=== PATIENT | female | born 1985 | race Caucasian/White ===

== ENCOUNTER 2020-07-24 15:41 | Observation (INO) | payer OTHER ==
[~2020-07-24] VITALS: Ht 162.6 cm; Wt 126.6 kg
[~2020-07-24 15:41] MED LIST: MACROBID 100 M100 M1 PO
[2020-07-24 15:48] VITALS: BP 178/119
[2020-07-24] MEDS ORDERED: PHENERGAN 25 MG25 M1 PO (15:51)
[2020-07-24] MEDS ORDERED: KLONOPIN1 MG PO (15:51)
[2020-07-24 16:13] LABS: ABSOLUTE BASOPHILS 0.1 thou/uL (0.0-0.2); ABSOLUTE EOSINOPHILS 0.1 thou/uL (0.0-0.7); ABSOLUTE LYMPHOCYTES 2.3 thou/uL (0.8-5.3); ABSOLUTE MONOCYTES 0.9 thou/uL (0.0-1.2); ABSOLUTE NEUTROPHILS 5.5 thou/uL (1.6-8.1); BASOPHILS 0.9 %; EOSINOPHILS 0.8 %; HEMATOCRIT 45.4 % (37.0-47.0); HEMOGLOBIN 15.3 gm/dL (12.0-15.0); MCH 32.9 pg (26.0-34.0); MCHC 33.7 g/dL (28.0-37.0); MCV 97.8 fL (80.0-100.0); MONOCYTES 9.7 %; MPV 7.8 fl. (7.2-11.1); NUCLEATED RBCS 0 /100WBC; PLATELET COUNT* 274 thou/uL (150-400); POLYS 62.6 %; RBC 4.64 mil/uL (4.20-5.00); WBC 8.8 thou/uL (4.0-11.0)
[2020-07-24 16:18] LABS: CREATININE 0.9 mg/dL (0.6-1.3); POTASSIUM 4.1 mmol/L (3.5-5.1)
[2020-07-24 16:28] LABS: ALBUMIN 3.5 g/dL (3.4-5.0); TOTAL BILIRUBIN 0.4 mg/dL (<0.1-1.0); TOTAL PROTEIN 8.1 g/dL (6.4-8.2)
--- NOTE | 2020-07-24 17:37 | EKG ---
[place] [address] ELECTROCARDIOGRAM REPORT Name: HERBIE WELLSLEY Constance [address] [id number] Admission: 07/24/20 Attend Phys: Nikhil Covarrubias, Discharge: Date of : 85 Date of Service: 07/24/20 1549 Report #: [id number] THIS REPORT FOR: //name// [facility] ED Test Date: 2020-07-24 Test Time: 15:49:10 Pat Name: CHARMAINE WELLS Department: Room: [facility] Gender: F Clay Burner: YU : 1985 Requested By: Shaquille Bettencourt Order Number: [id number] MD: Jason Pal Measurements Intervals [place] Rate: 117 P: 0 MD: 85 QRS: 3 QRSD: 78 T: 218 QT: 416 QTc: 581 Interpretive Statements Sinus tachycardia Probable left atrial enlargement Nonspecific T abnormalities, diffuse leads Prolonged QT interval No previous ECG available for comparison Electronically Signed On 07-24-2020 17:37:18 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
[2020-07-24 18:03] VITALS: BP 145/95
[2020-07-24 20:34] VITALS: BP 159/99
[2020-07-25] VITALS (8 sets, daily range): BP systolic 128–171; BP diastolic 73–108
[2020-07-25 06:27] LABS: CALCIUM 8.8 mg/dL (8.5-10.1); CREATININE 0.7 mg/dL (0.6-1.3); MAGNESIUM 2.1 mg/dL (1.8-2.4); POTASSIUM 3.9 mmol/L (3.5-5.1)
[2020-07-25] MEDS ORDERED: MUCINEX600 MG PO (11:56)
[2020-07-25] MEDS ORDERED: METOPROLOL TART25 MG PO (11:56)
--- NOTE | 2020-07-25 15:27 | 2DMMODE ---
[place] [address] 2 D/M-MODE ECHOCARDIOGRAM Name: CHARMAINE WELLS Constance Room: [address] Sanjay Ya#: [id number] Admission: 07/24/20 Attend Phys: Nikhil Covarrubias, Discharge: Date of : 85 Date of Service: 07/25/20 1527 Report #: [id number] THIS REPORT FOR: cc: FAM - No family physician/PCP FAM - No family physician/PCP Jason Pal MD [facility] ~ APPROVED REPORT Study performed: 07/25/2020 14:00:57 EXAM: Comprehensive 2D, Doppler, and color-flow Echocardiogram Patient Location: In-Patient Room #: [facility] Status: routine BSA: 2.26 HR: 77 bpm BP: 144/103 mmHg Rhythm: NSR Other Information Study Quality: Good Indications Dyspnea 2D Dimensions IVSd: 12.55 (7-11mm) LVOT Diam: 20.04 (18-24mm) LVDd: 48.85 mm PWd: 10.79 (7-11mm) Ascending Ao: 33.29 (22-36mm) LVDs: 33.33 (25-40mm) Aortic Root: 33.52 mm Volumes Left Atrial Volume (Systole) LA ESV Index: 23.70 mL/m2 Aortic Valve AoV Peak Jayy.: 1.11 m/s AO Peak Gr.: 4.95 mmHg LVOT Max P.19 mmHg AO Mean Gr.: 2.61 mmHg LVOT Mean P.87 mmHg LVOT Max V: 1.02 m/s AO V2 VTI: 22.32 cm LVOT Mean V: 0.62 m/s RDEW (VTI): 3.09 cm2 LVOT V1 VTI: 21.88 [place] [address] 2 D/M-MODE ECHOCARDIOGRAM Name: CHARMAINE WELLS [address]#: [id number] Admission: 07/24/20 Attend Phys: Nikhil Covarrubias, Discharge: Date of : 85 Date of Service: 07/25/20 1527 Report #: [id number] Mitral Valve E/A Ratio: 1.31 MV Decel. Time: 292.14 ms MV E Max Jayy.: 0.62 m/s MV PHT: 84.72 ms MVA (PHT): 2.60 cm2 TDI E/Lateral E': 5.17 E/Medial E': 6.20 Medial E' Jayy.: 0.10 m/s Lateral E' Jayy.: 0.12 m/s Pulmonary Valve PV Peak Jayy.: 0.80 m/s PV Peak Gr.: 2.54 mmHg Left Ventricle The left ventricle is normal size. There is normal LV segmental wall motion. There is normal left ventricular wall thickness. Left ventricular systolic function is normal. The left ventricular ejection fraction is within the normal range. LVEF is 55-60%. The left ventricular diastolic function is normal. Right Ventricle The right ventricle is normal size. The right ventricular systolic function is normal. Atria The left atrium size is normal. The right atrium size is normal. Aortic Valve The aortic valve is normal in structure. No aortic regurgitation is present. There is no aortic valvular stenosis. Mitral Valve The mitral valve is normal in structure. There is no mitral valve regurgitation noted. No evidence of mitral valve stenosis. Tricuspid Valve The tricuspid valve is normal in structure. There is no tricuspid valve regurgitation noted. Pulmonic Valve The pulmonary valve is normal in structure. There is no pulmonic [place] [address] 2 D/M-MODE ECHOCARDIOGRAM Name: CHARMAINE WELLS [address]#: [id number] Admission: 07/24/20 Attend Phys: Nikhil Covarrubias, Discharge: Date of : 85 Date of Service: 07/25/20 1527 Report #: [id number] Great Vessels The aortic root is normal in size. IVC is normal in size and collapses >50% with inspiration. Pericardium There is no pericardial effusion. <Conclusion> Left ventricular systolic function is normal. The left ventricular ejection fraction is within the normal range. <ELECTRONICALLY SIGNED> By: Jason Pal MD, [facility] 07/25/20 1527 1527 1527 Jason Pal MD, FACC /INF
[2020-07-26 02:06] LABS: GLYCOHEMOGLOBIN (HGB A1C) 5.1 % (4.8-5.6)
== END 2020-07-25 20:45 | disposition home or self-care (01) ==
LOC: M.ERS 15:41 → M.TBA-ER 17:08 → M.ORTHSURG 18:38
PROVIDERS: Emergency Medicine Emergency Medical Services; ADMIT Internal Medicine; ATTEND Internal Medicine
DX: U07.1 COVID-19 (principal); F41.1 Generalized anxiety disorder; G43.909 Migraine, unspecified, not intractable, without status migrainosus; E66.9 Obesity, unspecified; I45.81 Long QT syndrome; E06.3 Autoimmune thyroiditis; R73.9 Hyperglycemia, unspecified; F43.10 Post-traumatic stress disorder, unspecified; Z79.899 Other long term (current) drug therapy; Z68.42 Body mass index [BMI] 45.0-49.9, adult

== ENCOUNTER 2020-12-18 18:48 | Emergency (ER) | payer OTHER ==
[~2020-12-18] VITALS: Ht 165.1 cm; Wt 127.0 kg
[~2020-12-18 18:48] MED LIST changes: +KLONOPIN1 MG PO; +METOPROLOL TART25 MG PO; +MUCINEX600 MG PO; +PHENERGAN 25 MG25 M1 PO
[2020-12-18] MEDS ORDERED: NADOLOL 20 MG T20 M1 PO (19:07)
[2020-12-18 20:14] LABS: ABSOLUTE BASOPHILS 0.1 thou/uL (0.0-0.2); ABSOLUTE EOSINOPHILS 0.2 thou/uL (0.0-0.7); ABSOLUTE LYMPHOCYTES 2.6 thou/uL (0.8-5.3); ABSOLUTE MONOCYTES 0.8 thou/uL (0.0-1.2); ABSOLUTE NEUTROPHILS 5.5 thou/uL (1.6-8.1); BASOPHILS 0.9 %; EOSINOPHILS 2.5 %; HEMOGLOBIN 14.5 gm/dL (12.0-15.0); LYMPHOCYTES 28.5 %; MCH 32.5 pg (26.0-34.0); MCHC 32.9 g/dL (28.0-37.0); MCV 98.9 fL (80.0-100.0); MONOCYTES 8.4 %; MPV 7.5 fl. (7.2-11.1); NUCLEATED RBCS 0 /100WBC; PLATELET COUNT* 275 thou/uL (150-400); POLYS 59.7 %; RBC 4.45 mil/uL (4.20-5.00); RDW-CV 13.5 % (10.5-14.5); WBC 9.2 thou/uL (4.0-11.0)
[2020-12-18 20:23] LABS: CALCIUM 9.4 mg/dL (8.5-10.1); CREATININE 0.8 mg/dL (0.6-1.3)
[2020-12-18 20:27] LABS: ALBUMIN 3.4 g/dL (3.4-5.0); MAGNESIUM 2.1 mg/dL (1.8-2.4); TOTAL BILIRUBIN 0.4 mg/dL (<0.1-1.0); TOTAL PROTEIN 8.4 g/dL (6.4-8.2)
[2020-12-18 21:14] LABS: URINE BILIRUBIN NEGATIVE (Negative); URINE BLOOD NEGATIVE (Negative); URINE CLARITY CLEAR; URINE COLOR YELLOW; URINE GLUCOSE-RANDOM NEGATIVE (Negative); URINE KETONES NEGATIVE (Negative); URINE LEUKOCYTES-REFLEX NEGATIVE (Negative); URINE NITRITE-REFLEX NEGATIVE (Negative); URINE PROTEIN NEGATIVE (Negative); URINE SPECIFIC GRAVITY <= 1.005 (1.005-1.030); URINE UROBILINOGEN 0.2 E.U./dl (0.2-1.0)
[2020-12-18] MEDS ORDERED: BUTALB-APAP-CA1 EACH PO ×2 (22:19→22:44)
[2020-12-18] MEDS ORDERED: MEDROLDOSEPACK PO ×2 (22:19→22:44)
[2020-12-18 22:48] VITALS: BP 148/80
== END 2020-12-18 22:50 | disposition home or self-care (01) ==
LOC: M.ERS 18:48
PROVIDERS: Personal Emergency Response Attendant
DX: R51.9 Headache, unspecified (principal); Z88.1 Allergy status to other antibiotic agents; Z88.6 Allergy status to analgesic agent; Z88.8 Allergy status to other drugs, medicaments and biological substances; Z90.710 Acquired absence of both cervix and uterus; Z90.49 Acquired absence of other specified parts of digestive tract; Z79.899 Other long term (current) drug therapy

== ENCOUNTER 2021-02-05 22:05 | Emergency (ER) | payer OTHER ==
[~2021-02-05] VITALS: Ht 172.7 cm; Wt 127.0 kg
[~2021-02-05 22:05] MED LIST changes: +BUTALB-APAP-CA1 EACH PO; +MEDROLDOSEPACK PO; +NADOLOL 20 MG T20 M1 PO
[2021-02-05] MEDS ORDERED: MECLIZINE HCL25 M1 PO (22:16)
[2021-02-05 23:28] LABS: ABSOLUTE BASOPHILS 0.1 thou/uL (0.0-0.2); ABSOLUTE EOSINOPHILS 0.2 thou/uL (0.0-0.7); ABSOLUTE LYMPHOCYTES 2.6 thou/uL (0.8-5.3); ABSOLUTE MONOCYTES 0.9 thou/uL (0.0-1.2); ABSOLUTE NEUTROPHILS 7.1 thou/uL (1.6-8.1); BASOPHILS 0.6 %; EOSINOPHILS 1.7 %; HEMATOCRIT 37.1 % (37.0-47.0); HEMOGLOBIN 12.7 gm/dL (12.0-15.0); LYMPHOCYTES 24.2 %; MCH 33.5 pg (26.0-34.0); MCHC 34.1 g/dL (28.0-37.0); MCV 98.2 fL (80.0-100.0); MONOCYTES 8.7 %; MPV 7.6 fl. (7.2-11.1); NUCLEATED RBCS 0 /100WBC; PLATELET COUNT* 301 thou/uL (150-400); POLYS 64.8 %; RBC 3.78 mil/uL (4.20-5.00); RDW-CV 14.5 % (10.5-14.5); WBC 10.9 thou/uL (4.0-11.0)
[2021-02-05 23:37] LABS: CALCIUM 8.7 mg/dL (8.5-10.1); CREATININE 0.8 mg/dL (0.6-1.3); POTASSIUM 4.1 mmol/L (3.5-5.1)
[2021-02-05 23:48] LABS: ALBUMIN 3.1 g/dL (3.4-5.0); TOTAL BILIRUBIN 0.3 mg/dL (<0.1-1.0); TOTAL PROTEIN 7.4 g/dL (6.4-8.2)
[2021-02-05 23:57] LABS: URINE BILIRUBIN NEGATIVE (Negative); URINE BLOOD NEGATIVE (Negative); URINE CLARITY CLEAR; URINE COLOR YELLOW; URINE GLUCOSE-RANDOM NEGATIVE (Negative); URINE KETONES NEGATIVE (Negative); URINE LEUKOCYTES-REFLEX NEGATIVE (Negative); URINE NITRITE-REFLEX NEGATIVE (Negative); URINE PROTEIN NEGATIVE (Negative); URINE SPECIFIC GRAVITY <= 1.005 (1.005-1.030); URINE UROBILINOGEN 0.2 E.U./dl (0.2-1.0)
[2021-02-06] MEDS ORDERED: MEDROLDOSEPACK PO (02:25)
[2021-02-06] MEDS ORDERED: ACETAMINOPHEN-1 EAC2 PO (02:25)
[2021-02-06 02:50] VITALS: BP 117/68
--- NOTE | 2021-02-06 10:56 | EKG ---
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 : 1985 Requested By: Hannah Cochran Order Number: [id number] MD: Stanley Xiong Measurements Intervals [place] Rate: 80 P: 42 [place]: 162 QRS: -7 QRSD: 93 T: -9 QT: 385 QTc: 445 Interpretive Statements Sinus rhythm Possible left ventricular hypertrophy Borderline T abnormalities, inferior leads Compared to ECG 07/24/2020 15:49:10 Left ventricular hypertrophy now present Sinus tachycardia no longer present Prolonged QT interval no longer present ST-T abnormalities have diminished Electronically Signed On 02-06-2021 10:56:08 CDT by Stanley Xiong [email or web address] <ELECTRONICALLY SIGNED> By: Stanley Xiong MD, [facility] 02/06/21 1056 10 10 Stanley Xiong MD, [facility] /EPI
== END 2021-02-06 02:50 | disposition home or self-care (01) ==
LOC: M.ERS 22:05
PROVIDERS: Personal Emergency Response Attendant
DX: F41.9 Anxiety disorder, unspecified (principal); R07.89 Other chest pain; Z88.1 Allergy status to other antibiotic agents; Z88.8 Allergy status to other drugs, medicaments and biological substances; Z88.6 Allergy status to analgesic agent; Z90.710 Acquired absence of both cervix and uterus; Z90.49 Acquired absence of other specified parts of digestive tract

== ENCOUNTER 2021-03-08 17:53 | Emergency (ER) | payer OTHER ==
[~2021-03-08] VITALS: Ht 162.6 cm; Wt 133.4 kg
[~2021-03-08 17:53] MED LIST changes: +ACETAMINOPHEN-1 EAC2 PO; +MECLIZINE HCL25 M1 PO
[2021-03-08] MEDS ORDERED: LEXAPRO20 MG PO (18:09)
[2021-03-08 18:13] LABS: ABSOLUTE BASOPHILS 0.1 thou/uL (0.0-0.2); ABSOLUTE EOSINOPHILS 0.1 thou/uL (0.0-0.7); ABSOLUTE LYMPHOCYTES 1.8 thou/uL (0.8-5.3); ABSOLUTE MONOCYTES 0.9 thou/uL (0.0-1.2); ABSOLUTE NEUTROPHILS 9.9 thou/uL (1.6-8.1); BASOPHILS 0.9 %; EOSINOPHILS 0.6 %; HEMATOCRIT 40.6 % (37.0-47.0); LYMPHOCYTES 14.1 %; MCHC 34.6 g/dL (28.0-37.0); MCV 98.2 fL (80.0-100.0); MPV 6.8 fl. (7.2-11.1); NUCLEATED RBCS 0 /100WBC; PLATELET COUNT* 261 thou/uL (150-400); POLYS 77.4 %; RBC 4.13 mil/uL (4.20-5.00); RDW-CV 14.4 % (10.5-14.5); WBC 12.8 thou/uL (4.0-11.0)
[2021-03-08 18:24] LABS: ANION GAP 10 mmol/L (7-16); BUN 6 mg/dL (7-18); CALCIUM 8.6 mg/dL (8.5-10.1); CHLORIDE 98 mmol/L (98-107); CO2 26 mmol/L (21-32); CREATININE 0.7 mg/dL (0.6-1.3); GLUCOSE 94 mg/dL (70-99); POTASSIUM 4.3 mmol/L (3.5-5.1); SODIUM 134 mmol/L (136-145)
[2021-03-08 18:36] LABS: ALBUMIN 3.7 g/dL (3.4-5.0); ALKALINE PHOSPHATASE 103 U/L (46-116); CK-MB MASS < 0.5 ng/mL (<0.5-3.6); LIPASE 74 U/L (73-393); MAGNESIUM 1.9 mg/dL (1.8-2.4); NT-PRO BRAIN NAT PEPTIDE 240 pg/mL (<300); SGOT 43 U/L (15-37); SGPT 20 U/L (30-65); TOTAL BILIRUBIN 0.4 mg/dL (<0.1-1.0); TOTAL PROTEIN 8.3 g/dL (6.4-8.2)
[2021-03-08 18:48] VITALS: BP 139/92
--- NOTE | 2021-03-09 09:47 | EKG ---
[place] [address] ELECTROCARDIOGRAM REPORT Name: CHARMAINE WELLS Room: [facility]#: [id number] Admission: 03/08/21 Attend Phys: Discharge: 03/08/21 Date of : 85 Date of Service: 03/08/21 1800 Report #: [id number] THIS REPORT FOR: //name// [facility] ED Test Date: 2021-03-08 Test Time: 18:00:59 Pat Name: CHARMAINE WELLS Department: Room: Gender: Lithopone Charger: : 1985 Requested By: Erasto Adair Order Number: [id number] MD: Jason Pal Measurements Intervals [place] Rate: 75 P: 29 CT: 177 QRS: -13 QRSD: 102 T: -33 QT: 404 QTc: 452 Interpretive Statements Sinus rhythm Left ventricular hypertrophy Abnormal T, consider ischemia, diffuse leads Compared to ECG 02/05/2021 22:11:27 Possible ischemia now present T-wave abnormality still present Electronically Signed On 03-09-2021 9:47:42 CDT by Jason Pal [email or web address] <ELECTRONICALLY SIGNED> By: Jason Pal MD, [facility] 03/09/21 0947 1800 1800 Jason Pal MD, [facility] /EPI
== END 2021-03-08 18:50 | disposition home or self-care (01) ==
LOC: M.ERS 17:53
PROVIDERS: Family Medicine
DX: F41.0 Panic disorder [episodic paroxysmal anxiety] (principal); G89.29 Other chronic pain; F17.210 Nicotine dependence, cigarettes, uncomplicated; Z88.6 Allergy status to analgesic agent; Z88.1 Allergy status to other antibiotic agents; Z88.8 Allergy status to other drugs, medicaments and biological substances; Z79.899 Other long term (current) drug therapy

== ENCOUNTER 2021-04-06 05:28 | Emergency (ER) | payer OTHER ==
[~2021-04-06] VITALS: Ht 165.1 cm; Wt 127.0 kg
[~2021-04-06 05:28] MED LIST changes: +LEXAPRO20 MG PO
[2021-04-06 06:03] LABS: HEMOGLOBIN 13.6 gm/dL (12.0-15.0)
[2021-04-06 06:04] LABS: ABSOLUTE BASOPHILS 0.1 thou/uL (0.0-0.2); ABSOLUTE EOSINOPHILS 0.1 thou/uL (0.0-0.7); ABSOLUTE LYMPHOCYTES 2.9 thou/uL (0.8-5.3); ABSOLUTE NEUTROPHILS 7.6 thou/uL (1.6-8.1); BASOPHILS 1.1 %; EOSINOPHILS 0.6 %; HEMATOCRIT 40.9 % (37.0-47.0); LYMPHOCYTES 24.7 %; MCH 32.3 pg (26.0-34.0); MCHC 33.3 g/dL (28.0-37.0); MONOCYTES 8.9 %; MPV 7.5 fl. (7.2-11.1); NUCLEATED RBCS 0 /100WBC; PLATELET COUNT* 304 thou/uL (150-400); POLYS 64.7 %; RBC 4.22 mil/uL (4.20-5.00); RDW-CV 13.9 % (10.5-14.5); WBC 11.8 thou/uL (4.0-11.0)
[2021-04-06 06:24] LABS: CALCIUM 8.1 mg/dL (8.5-10.1); CREATININE 0.7 mg/dL (0.6-1.3)
[2021-04-06 07:06] LABS: POTASSIUM 3.7 mmol/L (3.5-5.1)
[2021-04-06 07:07] LABS: MAGNESIUM 1.8 mg/dL (1.8-2.4); TOTAL BILIRUBIN 0.4 mg/dL (<0.1-1.0)
[2021-04-06 07:08] LABS: ALBUMIN 3.3 g/dL (3.4-5.0); TOTAL PROTEIN 7.7 g/dL (6.4-8.2)
--- NOTE | 2021-04-06 07:54 | EKG ---
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: : 1985 Requested By: Fabiola Zhao Order Number: [id number] MD: Sarabjit Marie Measurements Intervals [place] Rate: 74 P: 29 MA: 130 QRS: -8 QRSD: 91 T: -28 QT: 438 QTc: 486 Interpretive Statements Sinus rhythm Left ventricular hypertrophy, by voltage Nonspecific T abnormalities, inferior leads Baseline wander in lead(s) II,III,aVR,aVL,aVF,V2,V3,V4,V5,V6 Compared to ECG 03/08/2021 18:00:59 Possible ischemia no longer present T-wave abnormality still present Electronically Signed On 04-06-2021 7:54:37 CDT by Sarabjit Marie [email or web address] <ELECTRONICALLY SIGNED> By: Sarabjit Marie MD, [facility] 04/06/21 0754 0534 0534 Sarabjit Marie MD, [facility] /EPI
[2021-04-06 08:37] LABS: URINE BILIRUBIN NEGATIVE (Negative); URINE BLOOD NEGATIVE (Negative); URINE CLARITY CLEAR; URINE COLOR YELLOW; URINE GLUCOSE-RANDOM NEGATIVE (Negative); URINE KETONES NEGATIVE (Negative); URINE LEUKOCYTES-REFLEX NEGATIVE (Negative); URINE NITRITE-REFLEX NEGATIVE (Negative); URINE PROTEIN NEGATIVE (Negative); URINE SPECIFIC GRAVITY <= 1.005 (1.005-1.030); URINE UROBILINOGEN 0.2 E.U./dl (0.2-1.0)
[2021-04-06] MEDS ORDERED: HYDROCODON-ACE1 EAC7 PO (08:49)
[2021-04-06] MEDS ORDERED: PHENERGAN 25 MG25 M1 PO (08:49)
[2021-04-06 09:01] VITALS: BP 139/88
== END 2021-04-06 09:02 | disposition home or self-care (01) ==
LOC: M.ERS 05:28
PROVIDERS: Emergency Medicine
DX: R19.7 Diarrhea, unspecified (principal); Z20.822 Contact with and (suspected) exposure to COVID-19; R11.2 Nausea with vomiting, unspecified; R10.12 Left upper quadrant pain; F41.9 Anxiety disorder, unspecified; F17.210 Nicotine dependence, cigarettes, uncomplicated; Z90.710 Acquired absence of both cervix and uterus; Z90.49 Acquired absence of other specified parts of digestive tract; Z79.899 Other long term (current) drug therapy; Z88.1 Allergy status to other antibiotic agents; Z88.6 Allergy status to analgesic agent; Z88.8 Allergy status to other drugs, medicaments and biological substances

== ENCOUNTER 2021-04-09 20:34 | Emergency (ER) | payer OTHER ==
[~2021-04-09] VITALS: Ht 170.2 cm; Wt 124.7 kg
[~2021-04-09 20:34] MED LIST changes: +HYDROCODON-ACE1 EAC7 PO
[2021-04-09 21:38] LABS: ABSOLUTE BASOPHILS 0.1 thou/uL (0.0-0.2); ABSOLUTE EOSINOPHILS 0.2 thou/uL (0.0-0.7); ABSOLUTE LYMPHOCYTES 1.8 thou/uL (0.8-5.3); ABSOLUTE MONOCYTES 0.8 thou/uL (0.0-1.2); ABSOLUTE NEUTROPHILS 8.1 thou/uL (1.6-8.1); BASOPHILS 0.9 %; EOSINOPHILS 2.2 %; HEMATOCRIT 42.6 % (37.0-47.0); HEMOGLOBIN 14.2 gm/dL (12.0-15.0); MCH 32.8 pg (26.0-34.0); MCHC 33.3 g/dL (28.0-37.0); MCV 98.4 fL (80.0-100.0); MONOCYTES 7.6 %; MPV 7.5 fl. (7.2-11.1); NUCLEATED RBCS 0 /100WBC; PLATELET COUNT* 259 thou/uL (150-400); POLYS 73.3 %; RBC 4.33 mil/uL (4.20-5.00)
[2021-04-09 21:45] LABS: CALCIUM 8.8 mg/dL (8.5-10.1); CREATININE 0.7 mg/dL (0.6-1.3); POTASSIUM 3.6 mmol/L (3.5-5.1)
[2021-04-09 21:50] LABS: ALBUMIN 3.5 g/dL (3.4-5.0); TOTAL BILIRUBIN 0.5 mg/dL (<0.1-1.0); TOTAL PROTEIN 8.1 g/dL (6.4-8.2)
[2021-04-09 22:05] VITALS: BP 150/98
--- NOTE | 2021-04-10 17:04 | EKG ---
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: [place] : 1985 Requested By: Haja Moses Order Number: [id number] MD: Stanley Xiong Measurements Intervals [place] Rate: 82 P: 43 [place]: 145 QRS: -4 QRSD: 85 T: -21 QT: 369 QTc: 431 Interpretive Statements Sinus rhythm LVH with secondary repolarization abnormality Compared to ECG 04/06/2021 05:34:10 T-wave abnormality persists Electronically Signed On 04-10-2021 17:04:26 CDT by Stanley Xiong [email or web address] <ELECTRONICALLY SIGNED> By: Stanley Xiong MD, [facility] 04/10/21 1704 19 19 Stanley Xiong MD, [facility] /EPI
== END 2021-04-09 22:06 | disposition home or self-care (01) ==
LOC: M.ERS 20:34
PROVIDERS: Physician Assistant
DX: R00.2 Palpitations (principal); F17.210 Nicotine dependence, cigarettes, uncomplicated; Z88.8 Allergy status to other drugs, medicaments and biological substances; Z88.1 Allergy status to other antibiotic agents; Z88.6 Allergy status to analgesic agent; Z79.899 Other long term (current) drug therapy; Z90.710 Acquired absence of both cervix and uterus; Z98.890 Other specified postprocedural states

== ENCOUNTER 2021-09-01 09:36 | Emergency (ER) | payer OTHER ==
[~2021-09-01] VITALS: Ht 162.6 cm; Wt 122.5 kg
[2021-09-01 10:39] LABS: ABSOLUTE BASOPHILS 0.1 thou/uL (0.0-0.2); ABSOLUTE EOSINOPHILS 0.1 thou/uL (0.0-0.7); ABSOLUTE LYMPHOCYTES 1.5 thou/uL (0.8-5.3); ABSOLUTE MONOCYTES 0.9 thou/uL (0.0-1.2); ABSOLUTE NEUTROPHILS 4.4 thou/uL (1.6-8.1); BASOPHILS 0.9 %; EOSINOPHILS 2.1 %; HEMATOCRIT 43.2 % (37.0-47.0); HEMOGLOBIN 14.3 gm/dL (12.0-15.0); LYMPHOCYTES 21.7 %; MCH 31.2 pg (26.0-34.0); MCHC 33.2 g/dL (28.0-37.0); MONOCYTES 12.5 %; MPV 8.1 fl. (7.2-11.1); NUCLEATED RBCS 0 /100WBC; PLATELET COUNT* 340 thou/uL (150-400); POLYS 62.8 %; RBC 4.59 mil/uL (4.20-5.00); RDW-CV 13.2 % (10.5-14.5); WBC 6.9 thou/uL (4.0-11.0)
[2021-09-01 10:46] LABS: CREATININE 0.8 mg/dL (0.6-1.3)
[2021-09-01 10:51] LABS: ALBUMIN 3.5 g/dL (3.4-5.0); TOTAL BILIRUBIN 0.2 mg/dL (<0.1-1.0); TOTAL PROTEIN 7.9 g/dL (6.4-8.2)
[2021-09-01 12:27] LABS: URINE BILIRUBIN NEGATIVE (Negative); URINE BLOOD NEGATIVE (Negative); URINE CLARITY CLEAR; URINE COLOR YELLOW; URINE GLUCOSE-RANDOM NEGATIVE (Negative); URINE KETONES NEGATIVE (Negative); URINE LEUKOCYTES NEGATIVE (Negative); URINE NITRITE NEGATIVE (Negative); URINE PROTEIN NEGATIVE (Negative); URINE SPECIFIC GRAVITY <= 1.005 (1.005-1.030); URINE UROBILINOGEN 0.2 E.U./dl (0.2-1.0)
[2021-09-01 13:25] VITALS: BP 127/77
[2021-09-01] MEDS ORDERED: HYDROCODON-ACE1 EAC7 PO (16:44)
[2021-09-01] MEDS ORDERED: PHENERGAN 25 MG25 M1 PO (16:44)
== END 2021-09-01 13:25 | disposition home or self-care (01) ==
LOC: M.ERS 09:36
PROVIDERS: Emergency Medicine Emergency Medical Services
DX: R10.12 Left upper quadrant pain (principal); R11.0 Nausea; R68.83 Chills (without fever); R06.02 Shortness of breath; F41.9 Anxiety disorder, unspecified; F17.210 Nicotine dependence, cigarettes, uncomplicated; Z90.49 Acquired absence of other specified parts of digestive tract; Z90.710 Acquired absence of both cervix and uterus; Z88.1 Allergy status to other antibiotic agents; Z88.8 Allergy status to other drugs, medicaments and biological substances

== ENCOUNTER 2021-09-21 22:32 | Emergency (ER) | payer OTHER ==
[~2021-09-21] VITALS: Ht 162.6 cm; Wt 117.9 kg
[2021-09-22 00:07] LABS: ABSOLUTE BASOPHILS 0.1 thou/uL (0.0-0.2); ABSOLUTE EOSINOPHILS 0.2 thou/uL (0.0-0.7); ABSOLUTE LYMPHOCYTES 1.9 thou/uL (0.8-5.3); ABSOLUTE NEUTROPHILS 9.4 thou/uL (1.6-8.1); BASOPHILS 0.7 %; EOSINOPHILS 1.5 %; HEMATOCRIT 39.3 % (37.0-47.0); LYMPHOCYTES 15.3 %; MCH 30.5 pg (26.0-34.0); MCHC 32.9 g/dL (28.0-37.0); MCV 92.7 fL (80.0-100.0); MONOCYTES 7.8 %; MPV 8.8 fl. (7.2-11.1); NUCLEATED RBCS 0 /100WBC; PLATELET COUNT* 323 thou/uL (150-400); POLYS 74.7 %; RBC 4.25 mil/uL (4.20-5.00); RDW-CV 13.3 % (10.5-14.5); WBC 12.6 thou/uL (4.0-11.0)
[2021-09-22 00:26] LABS: CALCIUM 8.8 mg/dL (8.5-10.1); CREATININE 0.6 mg/dL (0.6-1.3); POTASSIUM 3.7 mmol/L (3.5-5.1)
[2021-09-22 00:42] LABS: URINE BILIRUBIN NEGATIVE (Negative); URINE BLOOD NEGATIVE (Negative); URINE CLARITY CLEAR; URINE COLOR YELLOW; URINE GLUCOSE-RANDOM NEGATIVE (Negative); URINE KETONES 2+ (Negative); URINE LEUKOCYTES-REFLEX NEGATIVE (Negative); URINE NITRITE-REFLEX NEGATIVE (Negative); URINE PROTEIN NEGATIVE (Negative); URINE SPECIFIC GRAVITY <= 1.005 (1.005-1.030); URINE UROBILINOGEN 0.2 E.U./dl (0.2-1.0)
[2021-09-22 00:52] LABS: AMP/METHAMP Negative (Negative); BARBITURATES Negative (Negative); BENZODIAZEPINES Negative (Negative); COCAINE Negative (Negative); METHADONE Negative (Negative); OPIATES Negative (Negative); PCP Negative (Negative); THC Negative (Negative)
[2021-09-22 03:12] VITALS: BP 117/79
--- NOTE | 2021-09-22 09:40 | EKG ---
[place] [address] ELECTROCARDIOGRAM REPORT Name: CHARMAINE WELLS Room: 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: : 1985 Requested By: Fabiola Zhao Order Number: [id number] MD: Jason Pal Measurements Intervals [place] Rate: 112 P: 44 MS: 145 QRS: -8 QRSD: 85 T: -61 QT: 310 QTc: 423 Interpretive Statements Sinus tachycardia Nonspecific T abnormalities, diffuse leads Baseline wander in lead(s) V3,V5 Compared to ECG 04/09/2021 21:20:36 Sinus rhythm no longer present Left ventricular hypertrophy no longer present Electronically Signed On 09-22-2021 9:40:48 RRT by Jason Pal [email or web address] <ELECTRONICALLY SIGNED> By: Jason Pal MD, FAC 09/22/21 0940 2253 2253 Jason Pal MD, [facility] /EPI
== END 2021-09-22 03:12 | disposition home or self-care (01) ==
LOC: M.ERS 22:32
PROVIDERS: Emergency Medicine
DX: G90.1 Familial dysautonomia [Riley-Day] (principal); G43.909 Migraine, unspecified, not intractable, without status migrainosus; F41.9 Anxiety disorder, unspecified; F17.210 Nicotine dependence, cigarettes, uncomplicated; Z98.890 Other specified postprocedural states; Z90.710 Acquired absence of both cervix and uterus; Z79.899 Other long term (current) drug therapy; Z88.6 Allergy status to analgesic agent; Z88.8 Allergy status to other drugs, medicaments and biological substances; Z88.5 Allergy status to narcotic agent